=== PATIENT | male | born 1985 | race Hispanic/Latino ===

== ENCOUNTER 2018-06-10 11:48 | Inpatient (IN) | payer BC ==
[2018-06-10] MEDS ORDERED: Ondansetron PF 4 MG/2 ML Vial ONE ×2 (12:45→17:46)
[2018-06-10] MEDS ORDERED: Morphine 4 MG/ML VIAL ONE (12:45)
[2018-06-10 12:47] LABS: #Eosinphils 0.2 thou/uL (0.0-0.7); #Lymphocytes 1.6 thou/uL (1.20-3.40); #Neutrophils 10.8 thou/uL (1.40-6.50); %Basophils 0.1 % (0.0-1.0); %Eosinophils 1.5 % (0.0-10.0); %Lymphocytes 11.9 % (21.0-51.0); %Monocytes 7.4 % (0.0-10.0); %Neutrophils 79.3 % (42.0-75.0); Hemoglobin 14.4 g/dL (14.0-18.0); Mean Corpuscular HGB CONC 33.1 g/dL (32.0-36.0); Mean Corpuscular Hemoglobin 29.6 pg (27.0-31.0); Mean Corpuscular Volume 89.4 fL (78.0-98.0); Mean Platelet Volume 6.8 fL (7.4-10.4); Platelet Count 322 thou/uL (130-400); RBC Distribution Width 10.8 % (11.5-14.5); Red Blood Cell (RBC) Count 4.86 mill/uL (4.70-6.10); White Blood Cell (WBC) Count 13.6 thou/uL (4.8-10.8)
[2018-06-10 13:10] LABS: ALT (SGPT) 70 U/L (8-55); AST (SGOT) 35 U/L (5-34); Albumin 3.8 g/dL (3.5-5.0); Alkaline Phosphatase 160 U/L (40-150); Anion Gap 14 mmol/L (10-20); BUN (Urea Nitrogen) 15 mg/dL (8.9-20.6); Bilirubin, Total 0.6 mg/dL (0.2-1.2); Calc. Creatinine Clearance 0 mL/min (70-130); Calcium 9.4 mg/dL (7.8-10.44); Carbon Dioxide 22 mmol/L (22-29); Chloride 101 mmol/L (98-107); Estimated GFR-MDRD Greater than 90; Globulin 4.7 g/dL (2.4-3.5); Glucose 127 mg/dL (70-105); Lipase 13 U/L (8-78); Potassium 3.4 mmol/L (3.5-5.1); Protein, Total 8.5 g/dL (6.0-8.3); Sodium 134 mmol/L (136-145)
[2018-06-10 13:27] LABS: Bilirubin Small (Negative); Blood, Urine Trace (Negative); Clarity CLEAR (Clear); Glucose, Urine (Dipstick) Negative (Negative); Leukocyte Negative (Negative); Nitrite Negative (Negative); Protein, Urine (Dipstick) Trace mg/dL (Neg-Trace); pH, Urine 5.5 (5.0-9.0)
[2018-06-10 13:42] LABS: Bacteria/HPF None Seen HPF (None Seen); Hyaline Casts/LPF 0-3 HYALINE CAST LPF (0-3 Hyaline); Pathc Cast-AUWi Flag 0.14 (0-2.49); Squamous Epithelial 0-3 HPF (0-3); WBC/HPF 0-3 HPF (0-3)
[2018-06-10] MEDS ORDERED: Piperacillin/Tazobactam 3.375 GM VIAL ONE ×2 (13:52→18:28)
--- NOTE | 2018-06-10 15:04 | CT ---
CT ABDOMEN AND PELVIS WITH IV CONTRAST 06/10/18 HISTORY: Lower abdominal pain for 2 weeks with fever. COMPARISON: None. FINDINGS: There are several very tiny, 3 mm or less, pulmonary nodules at each lung base. There is a larger pul monary nodule seen at the lateral aspect of the right lung base measuring approximately 4 mm. Partial ly calcified nodule at the posteromedial right lung base probably related to calcified granuloma. A f ew additional tiny calcified granulomata are also seen at each lung base. The liver, spleen, pancreas, bilateral adrenal glands, kidneys, abdominal aorta, and decompressed uri nary bladder demonstrate a grossly normal nonenhanced CT appearance. The appendix is dilated, measuring 1.1 cm, and there is inflammatory stranding seen adjacent to the a ppendix. In the region of the distal portion of the appendix and tip of the appendix, there is a hete rogeneous collection measuring 5.6 cm x 4.0 cm, which may represent a combination of phlegmon and dev eloping abscess collection. No adjacent free intraperitoneal gas is present. These findings may be re lated to ruptured appendicitis with associated developing abscess collection/phlegmon in the pelvis. Inflammatory changes are seen adjacent to this structure as well. Osseous structures are intact. IMPRESSION: 1. Multiple non-calcified pulmonary nodules each lung base measuring 4 mm or less. Several calci fied granulomata are also seen. 2. Evidence for appendicitis and probable ruptured appendicitis with a heterogeneous appearing c ollecting in the pelvis measuring 5.6 cm x 4.0 cm, which likely represents a combination of developin g abscess collection and phlegmon. Above findings discussed with Dr. Simental in the emergency department on 06/10/18 at 1341 hours. CODE CR. POS: [facility]
[2018-06-10] MEDS ORDERED: Ketorolac Tromethamine 30 MG/ML VIAL ONE (16:56)
[2018-06-10] MEDS ORDERED: Iopamidol-370 76% 500 ML 1 ML ONE (16:56)
[2018-06-10] MEDS ORDERED: Bupivacaine/Epinephrine 0.25% 30 ML VIAL ONE (17:35)
[2018-06-10] MEDS ORDERED: Bupivacaine HCl 0.5%/Epinephrine 1:200,000/PF 30 ml Vial ONE (17:35)
[2018-06-10] MEDS ORDERED: Lidocaine 1% PF 5 ML VIAL ONE (17:46)
[2018-06-10] MEDS ORDERED: Succinylcholine Chloride 20 MG/ML 10 ml SYRINGE FS ONE (17:46)
[2018-06-10] MEDS ORDERED: PROPOFOL 200 MG/20 ML VIAL ONE (17:46)
[2018-06-10] MEDS ORDERED: Glycopyrrolate 0.2 MG/ML 5 ML SYRINGE ONE (17:46)
[2018-06-10] MEDS ORDERED: Fentanyl 100 MCG/2 ML VIAL ONE ×2 (18:01→19:40)
--- NOTE | 2018-06-10 18:17 | HP ---
HISTORY OF PRESENT ILLNESS: A 33-year-old male patient, seen by Dr. Babar Larsen, today and sent to the emergency room. The patient has had 2-week history of suprapubic right lower quadrant pain, anorexia, and fever. No nausea. Presents to her office noting laboratories demonstrating; white count 13,000, hemoglobin 14,000, and platelet count 341,000. He was sent to the emergency room, where CAT scan revealed changes of appendicitis with abscess. Abscess is not amenable to percutaneous drainage. The patient aide on the way to the hospital after leaving Dr. Larsen's office. CAT scan revealed a pelvic abscess, appendicitis not amenable to percutaneous drainage. The plan is for laparoscopic drainage, unlikely appendectomy. Risks of infection, bleeding, reoperation, and open procedure discussed. He consents. ALLERGIES: NONE. PERSONAL HISTORY: Tobacco none. Alcohol none. MEDICATIONS: None. PAST SURGICAL HISTORY: Noncontributory. PAST MEDICAL HISTORY: Noncontributory. SOCIAL HISTORY: The patient is . He does yard work. He lives in [place], [place]. His is present, translates for us. PHYSICAL EXAMINATION: VITAL SIGNS: 97 kg, 128/79, 91, 18, 99.1 degrees. HEAD, EYES, EARS, NOSE, AND THROAT: Unremarkable. LUNGS: Clear to auscultation. CARDIAC: Regular rate and rhythm without murmur or gallop. ABDOMEN: Soft, nontender except in his right quadrant where he has guarding and rebound. EXTREMITIES: Unremarkable. ASSESSMENT AND PLAN: Acute appendicitis. Recommend laparoscopic drainage of peritoneal abscess and pelvis. Unlikely appendectomy. He understands risks of infection, bleeding, reoperation, and open operation, he consents. Job ID: [id number]
[2018-06-10] MEDS ORDERED: Ondansetron PF 4 MG/2 ML Vial IVP PRN (19:02)
[2018-06-10] MEDS ORDERED: Morphine 4 MG/ML VIAL SLOW IVP PRN (19:02)
[2018-06-10] MEDS ORDERED: hydrALAZINE 20 MG/ML VIAL SLOW IVP PRN (19:02)
[2018-06-10] MEDS ORDERED: Acetaminophen 1,000 MG in Premix Bag 1 BAG IVPB PRN (19:07)
[2018-06-10] MEDS ORDERED: Ibuprofen 600 MG TAB PO PRN (19:07)
[2018-06-10] MEDS ORDERED: Promethazine HCl 25 MG/ML VIAL IM PRN (19:08)
[2018-06-10] MEDS ORDERED: Ondansetron HCl/PF 4 MG/2 ML Vial IVP PRN (19:08)
[2018-06-10] MEDS ORDERED: Promethazine HCl 25 MG/ML VIAL SLOW IVP PRN (19:08)
[2018-06-10] MEDS ORDERED: Ondansetron ODT 4 MG TAB PO PRN (19:11)
[2018-06-10] MEDS ORDERED: Ondansetron ODT 8 MG TAB SL PRN (19:11)
[2018-06-10] MEDS: Famotidine 20 MG TAB PO SCH (20:53)
[2018-06-10] MEDS: Lactated Ringer's 1,000 ML IV SCH (20:57)
[2018-06-10] MEDS: Enoxaparin Sodium 40 MG/0.4 ML SYRINGE SC SCH (21:00)
[2018-06-10 21:42] VITALS: BMI 30.1
[2018-06-10] MEDS: traMADol HCl 50 MG TAB PO PRN (23:25)
[2018-06-10] MEDS: Piperacillin/Tazobactam 4.5 GM in Sodium Chloride 0.9% 100 ML IVPB SCH (23:26)
--- NOTE | 2018-06-11 02:06 | OP ---
DATE OF PROCEDURE: 06/10/2018 PREOPERATIVE DIAGNOSIS: Neglected appendicitis with peritoneal abscess. POSTOPERATIVE DIAGNOSIS: Neglected appendicitis with peritoneal abscess. PROCEDURE PERFORMED: Laparoscopic drainage of pelvic abscess, #19 Gold Kip-Hess drain. ANESTHESIA: General with local of 0.5% Marcaine with epinephrine, 30 mL. Now, the patient has had two weeks of abdominal pain and fever. CAT scan reveals a peritoneal abscess, not amenable to a CT-guided drainage. DESCRIPTION OF PROCEDURE: The patient was taken to the operating room, where under general anesthesia, a Villalpando catheter placed at the beginning of the procedure, removed at the end. Abdomen was clipped of hair, prepared with ChloraPrep, and draped in routine fashion. Infraumbilical incision was made, pneumoperitoneum to 15 mmHg obtained with a Veress needle, replaced with a 5 port, and the laparoscope inserted under direct visualization laparoscopically. Right upper quadrant lateral incision made and 5 port placed. Left lower quadrant incision made and 5 port placed. There was an area of induration in the right hemipelvis. I identified the cecum and mobilized the bowel. The small bowel toward the mid abdomen away from the right hemipelvis inlet. With careful dissection bluntly, drained a copious amount of purulent material. This was irrigated with saline solution using the suction pbx installer. A #19 Gold BERE drain was then placed through the right lateral subcostal port site and directed into the abscess cavity and the drain secured with 3-0 nylon suture. He was placed in optimal position. Good hemostasis was noted. Irrigant evacuated. Pneumoperitoneum evacuated. All instruments were removed. All skin incisions were approximated with interrupted subdermal 4-0 Monocryl and [place] glue applied. The patient tolerated the procedure well. Job ID: [id number]
[2018-06-11] MEDS: traMADol HCl 50 MG TAB PO PRN ×4 (05:31→23:45)
[2018-06-11] MEDS: Lactated Ringer's 1,000 ML IV SCH ×3 (05:31→20:02)
[2018-06-11] MEDS: Piperacillin/Tazobactam 4.5 GM in Sodium Chloride 0.9% 100 ML IVPB SCH ×4 (05:31→23:46)
[2018-06-11 06:21] LABS: #Eosinphils 0.1 thou/uL (0.0-0.7); #Lymphocytes 1.2 thou/uL (1.20-3.40); #Neutrophils 11.6 thou/uL (1.40-6.50); %Basophils 0.2 % (0.0-1.0); %Eosinophils 0.8 % (0.0-10.0); %Lymphocytes 8.4 % (21.0-51.0); %Monocytes 7.2 % (0.0-10.0); %Neutrophils 83.4 % (42.0-75.0); Hemoglobin 13.1 g/dL (14.0-18.0); Mean Corpuscular HGB CONC 32.3 g/dL (32.0-36.0); Mean Corpuscular Volume 89.7 fL (78.0-98.0); Platelet Count 305 thou/uL (130-400); Red Blood Cell (RBC) Count 4.51 mill/uL (4.70-6.10); White Blood Cell (WBC) Count 13.9 thou/uL (4.8-10.8)
[2018-06-11 06:38] LABS: Anion Gap 11 mmol/L (10-20); BUN (Urea Nitrogen) 15 mg/dL (8.9-20.6); Calc. Creatinine Clearance 179 mL/min (70-130); Calcium 8.9 mg/dL (7.8-10.44); Carbon Dioxide 26 mmol/L (22-29); Chloride 103 mmol/L (98-107); Estimated GFR-MDRD Greater than 90; Glucose 128 mg/dL (70-105); Potassium 3.7 mmol/L (3.5-5.1); Sodium 136 mmol/L (136-145)
[2018-06-11] MEDS: Polyethylene Glycol 3350 17 GM Packet PO SCH (08:32)
[2018-06-11] MEDS: Famotidine 20 MG TAB PO SCH ×2 (08:32→20:02)
--- NOTE | 2018-06-11 10:17 | PRG ---
DATE OF SERVICE: 06/11/2018 SUBJECTIVE: Mr. Francis Baldwin is postoperative day #1 following laparoscopic drainage of pelvic abscess by Dr. Barker. The patient had perforated appendix. This was not visualized during the surgery. The patient complains of appropriate discomfort. He denies nausea or vomiting. He has not been out of bed yet. OBJECTIVE: VITAL SIGNS: On examination, he is afebrile with a maximum temperature of 99.1, pulse is 70, and blood pressure 111/75. LUNGS: Clear to auscultation. ABDOMEN: Soft. Incisions are healing nicely. Bowel sounds are present and normoactive. Drain exiting the right upper abdomen is intact with scant drainage coming from it currently. LABORATORY DATA: White blood cell count this morning is 13.9. Hemoglobin is 13.1. Electrolytes are essentially normal. ASSESSMENT: The patient with perforated appendicitis and pelvic abscess present. He continues to receive intravenous antibiotics with Zosyn. Today, he is on a regular diet. I have encouraged him to ambulate several times. We will follow his course and discharge him with or without the drain when appropriate. Job ID: [id number]
[2018-06-11] MEDS: Acetaminophen 500 MG TAB PO PRN (17:59)
[2018-06-11] MEDS: Enoxaparin Sodium 40 MG/0.4 ML SYRINGE SC SCH (20:02)
[2018-06-12] MEDS: traMADol HCl 50 MG TAB PO PRN ×2 (05:49→11:23)
[2018-06-12] MEDS: Piperacillin/Tazobactam 4.5 GM in Sodium Chloride 0.9% 100 ML IVPB SCH ×2 (05:50→12:30)
[2018-06-12] MEDS: Lactated Ringer's 1,000 ML IV SCH (05:53)
[2018-06-12 06:47] LABS: #Eosinphils 0.2 thou/uL (0.0-0.7); #Lymphocytes 1.6 thou/uL (1.20-3.40); #Monocytes 0.8 thou/uL (0.11-0.59); #Neutrophils 7.9 thou/uL (1.40-6.50); %Basophils 0.1 % (0.0-1.0); %Eosinophils 1.9 % (0.0-10.0); %Lymphocytes 14.9 % (21.0-51.0); %Monocytes 7.8 % (0.0-10.0); %Neutrophils 75.3 % (42.0-75.0); Mean Corpuscular HGB CONC 33.4 g/dL (32.0-36.0); Mean Corpuscular Hemoglobin 30.1 pg (27.0-31.0); Mean Platelet Volume 6.6 fL (7.4-10.4); Platelet Count 334 thou/uL (130-400); RBC Distribution Width 10.9 % (11.5-14.5); Red Blood Cell (RBC) Count 4.33 mill/uL (4.70-6.10); White Blood Cell (WBC) Count 10.5 thou/uL (4.8-10.8)
[2018-06-12] MEDS: Famotidine 20 MG TAB PO SCH (09:21)
[2018-06-12] MEDS: Acetaminophen 500 MG TAB PO PRN (09:21)
[2018-06-12] MEDS: Polyethylene Glycol 3350 17 GM Packet PO SCH (09:21)
[2018-06-12] MEDS ORDERED: Lactated Ringer's 1,000 ML IV SCH (10:15)
[2018-06-12 12:09] VITALS: BP 122/81; TEMP 98.4
[2018-06-12] MEDS ORDERED: metroNIDAZOLE 500 MG TAB PO SCH (15:00)
[2018-06-12] MEDS ORDERED: Cipro 250 MG TAB PO SCH (20:00)
--- NOTE | 2018-06-13 06:52 | DIS ---
DATE OF ADMISSION: 06/10/2018 DATE OF DISCHARGE: 06/12/2018 ADMISSION DIAGNOSIS: Perforated appendicitis with abscess formation. DISCHARGE DIAGNOSIS: Perforated appendicitis with abscess formation. OPERATION PERFORMED: Laparoscopic drainage of pelvic abscess by Dr. Barker on the day of admission. ADMISSION HISTORY: The patient is a 33-year-old male. He had the right lower quadrant pain for a couple of weeks prior to presenting to the hospital. At the time he presented, there was obvious abscess formation. This was not amenable to percutaneous drainage. Therefore, he underwent laparoscopic drainage per Dr. Barker. No attempt was made to address the appendix. HOSPITAL COURSE: The patient has had an uneventful hospital course. He was kept on IV antibiotics initially. He was tolerating his diet and therefore his diet was continued. He has been ambulating and voiding uneventfully. He has had normalization of his white blood cells and has been afebrile with normal vital signs. Today is postoperative day #2 and is felt to be stable for discharge. He had 80 mL out of his drain yesterday and the drain fluid felt mostly serosanguineous, is just a little cloudy, and therefore to err on the side of caution, I discharging him home with a drain in place. I have asked him to follow up with Dr. Barker in 4 days (on Saturday) for drain removal. He will be discharged home on Augmentin and Ultram. He will have drain teaching prior to discharge by his nurse. Job ID: [id number]
== END 2018-06-12 16:26 | disposition home or self-care (01) | DRG 358 ==
LOC: ERS 11:48 → SDC/OP 16:36 → SURG A 19:02
PROVIDERS: ADMIT Specialist; ATTEND Specialist
PROC: 0W9J40Z Drainage of Pelvic Cavity with Drainage Device, Percutaneous Endoscopic Approach (ICD-10-PCS; principal; 2018-06-10)
DX: K35.33 Acute appendicitis with perforation, localized peritonitis, and gangrene, with abscess (principal)
CPT/HCPCS: 36415; 74177; 80048; 80053; 81003; 81015; 83690; 85025; J0131; J0670; J1650; J1885; J2001; J2270; J2405; J2543; J2704; J3010; J7050; Q9967